=== PATIENT | male | born 1975 ===

== ENCOUNTER 2020-07-26 15:51 | Inpatient (IN) ==
[2020-07-26] MEDS ORDERED: NS 0.9% 1000 ml BAG 1,000 ML IV ONE (16:10)
[2020-07-26 16:36] LABS: ABS Basophils 0.1 10^3/ul (0-0.2); ABS Eosinophils 0.1 10^3/ul (0-0.6); ABS Lymphocytes 1.6 10^3/ul (1.0-4.8); ABS Monocytes 0.9 10^3/ul (0-0.8); ABS Neutrophils 8.9 10^3/ul (1.5-7.7); Eosinophil % 0.8 %; Hematocrit 51 % (42-52); Hemoglobin 17.9 g/dL (14.0-18.0); Lymphocyte % 13.8 %; Mean Corpuscular HGB Conc 35 g/dL (31-36); Mean Corpuscular Hemoglobin 36 pg (27-31); Mean Corpuscular Volume 104 fL (80-94); Mean Platelet Volume 7.8 fL (7.4-10.4); Platelet Count 203 10^3/uL (150-450); Red Blood Count 4.92 10^6 /uL (4.18-5.48); Red Cell Distribution Width 15 % (10-15); White Blood Count 11.5 10^3/uL (3.5-10.8)
[2020-07-26 16:46] LABS: Troponin I 0.02 ng/mL (<0.03)
[2020-07-26 16:59] LABS: ALT 46 U/L (7-52); AST 110 U/L (13-39); Albumin 3.5 g/dL (3.2-5.2); Albumin/Globulin Ratio 1.1 (1-3); Alkaline Phosphatase 173 U/L (34-104); Anion Gap 8 mmol/L (2-11); BUN/Creatinine Ratio 6.7 (8-20); Blood Urea Nitrogen 5 mg/dL (6-24); CO2 Carbon Dioxide 26 mmol/L (22-32); Calcium 9.4 mg/dL (8.6-10.3); Chloride 101 mmol/L (101-111); EGFR African American 135.7 (>60); EGFR Non-African American 112.1 (>60); Globulin 3.3 g/dL (2-4); Glucose 259 mg/dL (70-100); Magnesium 1.7 mg/dL (1.9-2.7); Potassium 4.6 mmol/L (3.5-5.0); Sodium 135 mmol/L (135-145); Total Protein 6.8 g/dL (6.4-8.9)
[2020-07-26 17:05] LABS: Alcohol, S < 10 mg/dL (<10)
[2020-07-26 17:20] LABS: TSH Ultra Thyroid Stim Horm 1.94 mcIU/mL (0.34-5.60)
[2020-07-26 17:28] LABS: T4, Total 8.05 mcg/dL (6.09-12.23)
[2020-07-26] MEDS ORDERED: Thiamine 100 MG/ML 2 ml VIAL (200 mg) IM ONE (19:52)
[2020-07-26] MEDS ORDERED: Metoprolol Tartrate 5 mg VIAL 5 ml VIAL (1 mg/ml) IV PRN (19:54)
[2020-07-26] MEDS ORDERED: Dextrose 50% Syringe 50 ml 25 GM/50 ML SYRINGE IV PUSH PRN (19:59)
[2020-07-26] MEDS ORDERED: Nicotine Lozenge mini 2 MG LOZNG.MINI MT PRN (20:03)
[2020-07-26 20:21] LABS: Cholesterol 148 mg/dL; HDL Cholesterol 42.8 mg/dL; LDL Cholesterol 86 mg/dL; Triglycerides 96 mg/dL
[2020-07-26 20:29] LABS: Troponin I 0.08 ng/mL (<0.03)
[2020-07-26] MEDS: Aspirin EC 81 mg TAB.EC (enteric coated) PO SCH (21:13)
[2020-07-26] MEDS: Enoxaparin 40 MG/0.4 ML SYR SUBCUT SCH (23:09)
[2020-07-27] MEDS ORDERED: NS 0.9% 1000 ml BAG 1,000 ML IV ONE (01:10)
[2020-07-27 04:20] LABS: Urine Appearance Clear; Urine Bilirubin Negative (Negative); Urine Blood Negative (Negative); Urine Color Amber; Urine Glucose 1+(50 mg/dL) (Negative); Urine Ketones Trace (Negative); Urine Nitrite Negative (Negative); Urine Protein 2+(100 mg/dL) (Negative); Urine Specific Gravity 1.021 (1.010-1.030); Urine Urobilinogen Negative (Negative)
[2020-07-27 04:34] LABS: BUN/Creatinine Ratio 12.5 (8-20); Calcium 8.3 mg/dL (8.6-10.3); EGFR African American 162.9 (>60); EGFR Non-African American 134.6 (>60); Magnesium 1.6 mg/dL (1.9-2.7); Potassium 3.8 mmol/L (3.5-5.0)
[2020-07-27 04:40] LABS: Urine Benzodiazepine Screen None Detected (None Detect); Urine Cannabinoids Screen Presumptive Positive (None Detect); Urine Opiates Screen None Detected (None Detect)
[2020-07-27 04:41] LABS: Urine Bacteria Absent (Absent); Urine Red Blood Cell 2+(6-10/hpf) (Absent); Urine Squamous Epithelial Cell Present (Absent); Urine White Blood Cell 2+(11-20/hpf) (Absent)
[2020-07-27 05:14] LABS: Hepatitis B Surface Antigen Nonreactive (Nonreactive)
[2020-07-27 05:19] LABS: Hepatitis A Ab IgM Negative (Negative)
[2020-07-27 05:20] LABS: Hepatitis B Core IgM Nonreactive (Nonreactive)
[2020-07-27 05:32] LABS: Hepatitis C Antibody Negative (Negative)
[2020-07-27] MEDS: Aspirin EC 81 mg TAB.EC (enteric coated) PO SCH (08:33)
[2020-07-27] MEDS: Multivitamins/Minerals TAB PO SCH (08:33)
[2020-07-27 09:27] LABS: Troponin I 0.07 ng/mL (<0.03)
[2020-07-27] MEDS ORDERED: Perflutren Lipid Microsphere 3 ML VIAL ONE (13:26)
[2020-07-27 15:28] LABS: Folate 9.49 ng/mL (>3.99)
[2020-07-27] MEDS ORDERED: Magnesium Sulfate 2 gm BAG 2 GM/50 ML BAG IVPB ONE (16:29)
[2020-07-27] MEDS ORDERED: Magnesium Sulfate 2 gm BAG 2 GM/50 ML BAG ONE (17:42)
[2020-07-27] MEDS: Enoxaparin 40 MG/0.4 ML SYR SUBCUT SCH (20:14)
[2020-07-28 06:23] LABS: ABS Basophils 0.1 10^3/ul (0-0.2); ABS Eosinophils 0.3 10^3/ul (0-0.6); ABS Lymphocytes 2.2 10^3/ul (1.0-4.8); ABS Neutrophils 5.3 10^3/ul (1.5-7.7); Eosinophil % 3.4 %; Hematocrit 44 % (42-52); Hemoglobin 15.5 g/dL (14.0-18.0); Lymphocyte % 25.1 %; Mean Corpuscular HGB Conc 35 g/dL (31-36); Mean Corpuscular Hemoglobin 37 pg (27-31); Mean Corpuscular Volume 105 fL (80-94); Mean Platelet Volume 7.9 fL (7.4-10.4); Nucleated Red Blood Cells % 0.1; Platelet Count 187 10^3/uL (150-450); Red Blood Count 4.23 10^6 /uL (4.18-5.48); Red Cell Distribution Width 15 % (10-15); White Blood Count 8.9 10^3/uL (3.5-10.8)
[2020-07-28 06:30] LABS: Anion Gap 7 mmol/L (2-11); CO2 Carbon Dioxide 22 mmol/L (22-32); Calcium 8.4 mg/dL (8.6-10.3); Chloride 104 mmol/L (101-111); Magnesium 1.9 mg/dL (1.9-2.7); Potassium 4.2 mmol/L (3.5-5.0); Sodium 133 mmol/L (135-145)
[2020-07-28 06:36] LABS: BUN/Creatinine Ratio 11.9 (8-20); Blood Urea Nitrogen 7 mg/dL (6-24); EGFR African American 178.9 (>60); EGFR Non-African American 147.9 (>60); Glucose 140 mg/dL (70-100); Phosphorus 3.8 mg/dL (2.5-5.0)
[2020-07-28 07:43] LABS: Troponin I 0.03 ng/mL (<0.03)
[2020-07-28] MEDS: Aspirin EC 81 mg TAB.EC (enteric coated) PO SCH (07:56)
[2020-07-28] MEDS: Multivitamins/Minerals TAB PO SCH (07:56)
[2020-07-28] MEDS ORDERED: NS 0.9% 1000 ml BAG 1,000 ML IV SCH ×2 (09:30→11:30)
[2020-07-28] MEDS ORDERED: Heparin 1,000 UNIT/ML 10 ml (10,000 UNITS) CATHLAB/DIALYSIS ONE (10:04)
[2020-07-28] MEDS ORDERED: Midazolam 5 mg/5 ml VIAL 1 mg/ml 5 ml VIAL (5 mg) ONE (10:04)
[2020-07-28] MEDS ORDERED: HYDROmorphone 1 MG/1 ML SYRINGE ONE (10:04)
[2020-07-28] MEDS ORDERED: diPHENhydraMINE IV 50 MG/ML 1 ml VIAL (BENADRYL) ONE (10:05)
[2020-07-28] MEDS ORDERED: Lidocaine 1% VIAL 10 MG/ML VIAL ONE (10:05)
[2020-07-28] MEDS ORDERED: VERAPAMIL 2.5 MG/ML 2 ML VIAL ** 5 mg/2 ml ONE (10:05)
[2020-07-28] MEDS ORDERED: nitroGLYCERIN DRIP 0 MCG/0 ML BTL ONE (10:05)
[2020-07-28] MEDS ORDERED: Heparin 2 UNITS/ML 1000 mls 2,000 ML IV ONE (10:05)
[2020-07-28] MEDS ORDERED: Iohexol 350 (CONTRAST) 200 ML MDV IV ONE (10:05)
[2020-07-28 10:16] LABS: INR 1.18 (0.82-1.09)
[2020-07-29 06:40] LABS: ABS Basophils 0.1 10^3/ul (0-0.2); ABS Eosinophils 0.3 10^3/ul (0-0.6); ABS Monocytes 1.1 10^3/ul (0-0.8); Eosinophil % 3.5 %; Hematocrit 45 % (42-52); Hemoglobin 15.7 g/dL (14.0-18.0); Lymphocyte % 21.4 %; Mean Corpuscular HGB Conc 35 g/dL (31-36); Mean Corpuscular Hemoglobin 37 pg (27-31); Mean Corpuscular Volume 105 fL (80-94); Mean Platelet Volume 7.9 fL (7.4-10.4); Platelet Count 192 10^3/uL (150-450); Red Blood Count 4.23 10^6 /uL (4.18-5.48); Red Cell Distribution Width 15 % (10-15); White Blood Count 9.6 10^3/uL (3.5-10.8)
[2020-07-29 06:54] LABS: ALT 20 U/L (7-52); Albumin/Globulin Ratio 1.2 (1-3); Alkaline Phosphatase 105 U/L (34-104); BUN/Creatinine Ratio 12.5 (8-20); Blood Urea Nitrogen 7 mg/dL (6-24); CO2 Carbon Dioxide 26 mmol/L (22-32); Calcium 8.8 mg/dL (8.6-10.3); Chloride 103 mmol/L (101-111); Cholesterol 118 mg/dL; EGFR African American 190.1 (>60); EGFR Non-African American 157.1 (>60); Globulin 2.6 g/dL (2-4); Glucose 186 mg/dL (70-100); HDL Cholesterol 38.1 mg/dL; LDL Cholesterol 62 mg/dL; Sodium 134 mmol/L (135-145); Total Protein 5.6 g/dL (6.4-8.9); Triglycerides 89 mg/dL
[2020-07-29 07:58] LABS: Anion Gap 5 mmol/L (2-11)
[2020-07-29] MEDS: Multivitamins/Minerals TAB PO SCH (08:11)
[2020-07-29] MEDS: Aspirin EC 81 mg TAB.EC (enteric coated) PO SCH (08:12)
[2020-07-29 10:26] LABS: Potassium Redraw 4.5 mmol/L (3.5-5.0)
[2020-07-29] MEDS: Enoxaparin 40 MG/0.4 ML SYR SUBCUT SCH (14:04)
[2020-07-29 15:06] LABS: Magnesium 1.9 mg/dL (1.9-2.7)
[2020-07-29] MEDS: CMCS:Varenicline 1 mg TAB (NF) PO SCH (17:13)
[2020-07-30 06:57] LABS: BUN/Creatinine Ratio 14.8 (8-20); Calcium 8.9 mg/dL (8.6-10.3); EGFR African American 198.2 (>60); EGFR Non-African American 163.8 (>60); Magnesium 1.8 mg/dL (1.9-2.7); Potassium 4.5 mmol/L (3.5-5.0)
[2020-07-30] MEDS: Aspirin EC 81 mg TAB.EC (enteric coated) PO SCH (07:51)
[2020-07-30] MEDS: Multivitamins/Minerals TAB PO SCH (07:51)
[2020-07-30] MEDS: CMCS:Varenicline 1 mg TAB (NF) PO SCH (07:51)
[2020-07-30] MEDS ORDERED: Magnesium Sulfate 2 gm BAG 2 GM/50 ML BAG IVPB ONE (10:36)
[2020-07-30] MEDS: Enoxaparin 40 MG/0.4 ML SYR SUBCUT SCH (12:57)
[2020-07-31] MEDS ORDERED: Perflutren Lipid Microsphere 3 ML VIAL ONE (07:28)
[2020-07-31] MEDS: Aspirin EC 81 mg TAB.EC (enteric coated) PO SCH (08:04)
[2020-07-31] MEDS: Multivitamins/Minerals TAB PO SCH (08:04)
[2020-07-31] MEDS: CMCS:Varenicline 1 mg TAB (NF) PO SCH (08:04)
[2020-07-31 11:53] LABS: ABS Basophils 0.1 10^3/ul (0-0.2); ABS Eosinophils 0.2 10^3/ul (0-0.6); ABS Lymphocytes 1.6 10^3/ul (1.0-4.8); ABS Monocytes 1.4 10^3/ul (0-0.8); Eosinophil % 1.9 %; Hematocrit 45 % (42-52); Hemoglobin 15.8 g/dL (14.0-18.0); Lymphocyte % 13.1 %; Mean Corpuscular HGB Conc 35 g/dL (31-36); Mean Corpuscular Hemoglobin 37 pg (27-31); Mean Corpuscular Volume 105 fL (80-94); Mean Platelet Volume 8.1 fL (7.4-10.4); Platelet Count 206 10^3/uL (150-450); Red Blood Count 4.33 10^6 /uL (4.18-5.48); Red Cell Distribution Width 15 % (10-15); White Blood Count 12.3 10^3/uL (3.5-10.8)
[2020-07-31 12:04] LABS: Anion Gap 3 mmol/L (2-11); BUN/Creatinine Ratio 13.3 (8-20); Blood Urea Nitrogen 8 mg/dL (6-24); CO2 Carbon Dioxide 28 mmol/L (22-32); Calcium 9.6 mg/dL (8.6-10.3); Chloride 99 mmol/L (101-111); EGFR African American 175.5 (>60); Glucose 220 mg/dL (70-100); Magnesium 1.8 mg/dL (1.9-2.7); Potassium 4.6 mmol/L (3.5-5.0); Sodium 130 mmol/L (135-145)
[2020-07-31] MEDS ORDERED: Magnesium Sulfate 2 gm BAG 2 GM/50 ML BAG IVPB ONE (12:07)
[2020-07-31 12:08] LABS: Troponin I 0.03 ng/mL (<0.03)
[2020-07-31] MEDS: Enoxaparin 40 MG/0.4 ML SYR SUBCUT SCH (12:26)
[2020-07-31 15:09] VITALS: BP 99/59
[2020-08-01] MEDS ORDERED: VARENICLINE 1 MG PO SCH (09:00)
== END 2020-07-31 16:45 | disposition short-term general hospital (02) | DRG 287 ==
LOC: MEDTELE 15:51 → ED 15:51 → MEDTELE 21:30
PROVIDERS: ADMIT Internal Medicine; ATTEND Internal Medicine